=== PATIENT | male | born 1975 | race Caucasian/White ===

== ENCOUNTER 2019-03-10 08:48 | Emergency (ER) | payer OTHER, SELFPAY ==
[2019-03-10 09:00] VITALS: BP 144/73; PULSE 84; RESP 16; TEMP 36.9; O2SAT 99
--- NOTE | 2019-03-10 09:04 | ED.URI ---
HPI - URI/Sore Throat General Chief Complaint: Upper Respiratory Infection Stated Complaint: Poss sinus infection/Chest Congestion Time Seen by Provider: 03/10/19 09:05 Source: patient and RN notes reviewed Mode of arrival: ambulatory Limitations: no limitations History of Present Illness HPI Narrative: 43-year-old male who presents to [facility] care with complaints of sinus congestion, sinus drainage, ears feeling clogged which first started about 10 days ago but has increased in severity for the past week. Patient just flew home from [place] and his ears have felt clogged and would not pop.Patient states he has had sinus infections in the past with symptoms similar as previously experienced.He states he has been taking Advil Cold and sinus,Flonase and using nasal saline with no improvement. Patient states that he has felt feverish and has had pressure and sinus pain to forehead and maxillary region. MD elicited complaint: fever (felt feverish), cough, rhinorrhea, nasal congestion and sinus pain Pertinent past history: sinusitis and other (previous sinus infections) Onset (ago): day(s) (10) Consistency: progressively worsening Severity: moderate Pain scale (0-10): 4 Description of mucous: clear and yellow Able to tolerate fluids by mouth: Yes Exacerbating factors: changing head position and leaning forward Relieving factors: nothing Context: recent travel Associated symptoms: fever (feverish), headache, rhinorrhea, nasal congestion, cough and ear pain Treatments prior to arrival: acetaminophen, ibuprofen, cold medicine and other (flonase) Related Data Allergies Allergy/AdvReac Type Severity Reaction Status Date / Time No Known Allergies Allergy Verified 03/10/19 09:18 Review of Systems Review of Systems: Narrative: CONSTITUTIONAL:Reports has felt feverish, chills, or sweats. EYES: Denies visual changes, redness, or discharge. ENT: positive rhinorrhea, congestion, facial pressure,no sore throat,positive otalgia. CARDIOVASCULAR: Denies chest pain, palpitations, or edema. RESPIRATORY: positive intermittent cough denies dyspnea. GASTROINTESTINAL: Denies abdominal pain, nausea, vomiting, or diarrhea. GENITOURINARY: Denies dysuria or hematuria. SKIN: Denies rash or itching. MUSCULOSKELETAL: Denies back pain, joint pain, or myalgia. NEUROLOGIC: positive frontal headache, no numbness, or weakness. PSYCHIATRIC: Denies anxiety or depression. All systems reviewed & are unremarkable except as noted in HPI and below PMFSH Past Medical History Medical History (Updated 03/10/19 @ 09:30 by Julieta Jaffe NP) Sinusitis Surgical History Surgical History (Updated 03/10/19 @ 09:34 by Julieta Jaffe NP) H/O arthroscopy of left knee Social History Social History (Updated 03/10/19 @ 09:32 by Julieta Jaffe NP) Smoking status: Never smoker Alcohol intake: never Substance use: never Living arrangements: with family Occupation/Education: occupation Additional occupation/education comments: [employer] Gender identity (if verbalized by the patient): Male Comments At time of signature, agree with nursing past medical, surgical, social and family history. There is no relevant family history pertinent to the presenting complaint Exam Narrative: Exam Narrative: GENERAL: Well-appearing, well-nourished, and in no acute distress. HEAD: Normocephalic, atraumatic. EYES: PERRLA and EOMI. ENT: Nares red, turbinates swollen, light yellow to clear rhinorrhea no epistaxis.Facial pressure and headache, Mucous membranes moist, TMs normal with dull light reflex, throat red no exudate or lesions, tonsils not enlarged, post nasal drainage present NECK: Supple.no lymphadenopathy CHEST: Clear to auscultation. No respiratory distress.SAO2 99% on room air, intermittent cough HEART: Regular rate and rhythm. No murmur heard. Normal peripheral pulses. ABDOMEN: Soft, nontender, nondistended, normal active bowel sounds. EXTREMITIES: Normal
== END 2019-03-10 09:31 | disposition home or self-care (01) ==
PROVIDERS: Emergency Provider Registered Nurse; PCP Internal Medicine
DX: J01.40 Acute pansinusitis, unspecified (principal)
CPT/HCPCS: 99203; G0463